=== PATIENT | male | born 1975 | race Two or more races ===

== ENCOUNTER 2024-08-29 09:16 | Emergency (ER) | payer MEDICAID, SELFPAY ==
[2024-08-29 09:33] VITALS: BP 127/78; PULSE 90; RESP 18; TEMP 37.5; O2SAT 95; BMI 38.5
--- NOTE | 2024-08-29 09:46 | EDNOTE_ITS ---
Upper Respiratory Inf. RME/HPI General Chief Complaint: Flu Like Symptoms Stated Complaint: BODYACHES, HEADACHE Time Seen by Provider: 08/29/24 09:18 Arrival date/time: 08/29/24 09:16 This is a 49-year-old male that comes in with complaints of bodyaches, headache that started approximately 3 days ago. Patient denies any sick contacts. Related Data Home Medications ?Medication ?Instructions ?Recorded ?Confirmed levothyroxine 13 mcg capsule 13 mcg PO QDAY 07/23/20 0 07/23/20 lisinopril 2.5 mg tablet 2.5 mg PO QDAY 07/23/2010/07 metformin 500 mg tablet 500 mg PO QDAY 07/23/2010/07 Previous Rx's ?Medication ?Instructions ?Recorded diazepam 10 mg tablet (Valium) 10 mg PO BID PRN muscle spasm #20 07/23/20 tabs naproxen 500 mg tablet (Naprosyn) 500 mg PO BID PRN pa in #60 tabs 07/23/20 ibuprofen 600 mg tablet 600 mg PO TID PRN pain #30 t abs 11/27/22 lidocaine 5 % topical patch 2 patch topical QDAY #15 e a 11/27/22 (Lidoderm) hydrocodone 5 mg-acetaminophen 325 1 tab PO BID PRN pa in #6 tabs 12/02/22 mg tablet ibuprofen 800 mg tablet 800 mg PO Q6H PRN pain #14 t abs 08/29/24 ondansetron 4 mg disintegrating 4 mg PO Q6H PRN nausea and 08/29/24 tablet vomiting #10 tabs Allergies Allergy/AdvReac Type Severity Reaction Status Date / Time No Known Allergies Allergy Verified 08/29/24 09:19 Review of Systems Review of Systems Systems Reviewed: All systems reviewed, normal except as documented Past Medical History Past Medical History CARDIAC: Negative Congestive Heart Failure RESPIRATORY: Negative Chronic Obstructive Pulmonary Disease (COPD) GENITOURINARY: Negative Renal Disease ENDOCRINE: Negative Diabetes Mellitus Type 1 or Diabetes Mellitus Type 2 Social History SMOKING STATUS: Never smoker ED Exam Narrative Physical exam: VITAL SIGNS: Reviewed. GENERAL APPEARANCE: Alert and interactive, follows commands, no acute distress, HEAD AND FACE: Non-traumatic. ENT: PERRL, pink conjunctivitis, eyelid no trauma, Mucous membrane moist. NECK: Supple, nontender, no nuchal rigidity. CHEST: No tenderness, no crepitus, no paradoxical movement, no retractions. LUNGS: Clear, well ventilated, symmetric, no rales, no wheezing, no rhonchi, no stridor, good breath sounds bilaterally. HEART: Regular rate, regular rhythm, no murmur, no gallops. ABDOMEN: Soft, nondistended, no guarding, nontender, no rebound, no masses, NEUROLOGICAL: Gross motor function intact sensory function intact, Appropriate for age. MUSCULOSKELETAL: low back nontender, full range of motion. EXTREMITIES: No redness no swelling no skin breakdown on bilateral foot and leg. Distal neurovascular status intact bilateral foot SKIN: Color pink, dry, no rash, no lacerations, no abrasions, no contusions. Course Quality Measures none Orders Category Date Time Status Bedside COVID-19 Antigen Test NOW Care 08/29/24 09:46 Completed Bedside Influenza A&B Antigen Test NOW Care 08/29/24 09:46 Completed Acetaminophen Tab [Tylenol ES Tab] Med 08/29/24 09:45 Discontinued 1,000 mg PO X1 ONE Ibuprofen Tab [Motrin Tab] Med 08/29/24 09:45 Discontinued 800 mg PO X1 ONE Ondansetron Odt [Zofran Odt] Med 08/29/24 09:45 Discontinued 4 mg PO X1 ONE Vital Signs Vital signs: Vital Signs Temperature 99.5 F 08/29/24 09:33 Pulse Rate 90 08/29/24 09:33 Respiratory Rate 18 08/29/24 09:33 Blood Pressure 127/78 08/29/24 09:33 Pulse Oximetry (%) 95 08/29/24 09:33 Oxygen Delivery Method Room Air 08/29/24 09:33 Upper Respiratory Infection MDM Narrative MDM Narrative:: Patient positive for influenza A. Will treat with supportive care. Patient outside the window to get Tamiflu. Patient told to follow-up with primary provider in 1 to 2 days. Come back to emergency room if symptoms change or worsen. Patient told to rest and drink plenty of fluids. Patient data External records reviewed:: [facility] previous records Clinical information provided by:: patient Social determinants that could affect healthcare access:: none Patient has the following chronic illnesses:: see hpi How is presenting disease/condition affected by chronic disease/condition?: no chronic disease Evaluation data The following diagnostics were reviewed and interpreted by me:: lab results Lab and/or radiology exams considered but not ordered:: none Interpretation Summary: see note Medications / Prescriptions Medications or Prescriptions considered but not ordered:: none Medication administrations:: Medication Administration History Discontinued Medications Acetaminophen (Acetaminophen 500 Mg Tablet) 1,000 mg PO X1 ONE Stop: 08/29/24 09:46 Last Admin: 08/29/24 10:00 Dose: 1,000 mg Documented By: ROMANA Ibuprofen (Ibuprofen Tab 400 Mg Tablet) 800 mg PO X1 ONE Stop: 08/29/24 09:46 Last Admin: 08/29/24 10:00 Dose: 800 mg Documented By: ROMANA Ondansetron HCl (Ondansetron Odt 4 Mg Tabrap) 4 mg PO X1 ONE; Protocol Stop: 08/29/24 09:46 Last Admin: 08/29/24 10:00 Dose: 4 mg Documented By: ROMANA see [facility] Consultations Consultation(s) initiated? (list below): No Diagnosis Upper Respiratory Differential Diagnosis: upper respiratory infection, sinusitis, viral infection, bronchitis and influenza Most likely diagnosis given after review of the tests above:: influenza Admission Indicated Admission indicated?: not indicated Admission Request Was there a request for admission?: No Disposition Plan Disposition Plan: Discharge Discharge Attestation Discharge Attestation: The patient and all family members were given an opportunity to ask questions and understood the discharge instructions. Discharge instructions specifically effects, indications for sooner follow up or return to the emergency department, and the expected course of current diagnosis. Patient condition: Stable Discharge Plan Plan Patient Disposition: HOME (Self Care) Patient condition on transfer: Stable Prescriptions/Referrals Prescriptions/Med Rec: New ondansetron 4 mg tablet,disintegrating 4 mg PO Q6H PRN (Reason: nausea and vomiting) Qty: 10 0RF ibuprofen 800 mg tablet 800 mg PO Q6H PRN (Reason: pain) Qty: 14 0RF No Action metformin 500 mg Tablet 500 mg PO QDAY lisinopril 2.5 mg Tablet 2.5 mg PO QDAY levothyroxine 13 mcg Capsule 13 mcg PO QDAY diazepam [Valium] 10 mg tablet 10 mg PO BID PRN (Reason: muscle spasm) Qty: 20 0RF naproxen [Naprosyn] 500 mg tablet 500 mg PO BID PRN (Reason: pain) Qty: 60 0RF lidocaine [Lidoderm] 5 % adhesive patch,medicated 2 patch topical QDAY Qty: 15 0RF Rx Instructions: leave on most painful area for up to 12 hrs ibuprofen 600 mg tablet 600 mg PO TID PRN (Reason: pain) Qty: 30 0RF hydrocodone-acetaminophen 5-325 mg tablet 1 tab PO BID MDD 10 PRN (Reason: pain) Qty: 6 0RF Referrals: Nazario Lao MD [Primary Care Provider] - In 1 week Problem List Clinical Impression: Influenza A Patient/Caregiver Discharge Instructions Discharge Activity: activity as tolerated Education Materials: ED Influenza (Adult) Additional Instructions: Follow up with primary provider in 1-2 days. Come back to ED if symptoms change or worsen Print Language: Portuguese Stand Alone Forms: Bhavana Award Info., Work/School Release, Patient Portal Info Letter PA/CONFIGURATION MANAGEMENT MANAGER Supervising Physician PA/CONFIGURATION MANAGEMENT MANAGER Supervising Physician: [email or web address]
[2024-08-29] MEDS: ACETAMINOPHEN 500 MG TABLET 1000 MG PO (10:00)
[2024-08-29] MEDS: IBUPROFEN TAB 400 MG TABLET 800 MG PO (10:00)
[2024-08-29] MEDS: ONDANSETRON ODT 4 MG TABRAP PO (10:00)
== END 2024-08-29 11:12 | disposition home or self-care (01) ==
PROVIDERS: Emergency Provider Emergency Medicine; PCP Family Medicine
DX: J10.1 Influenza due to other identified influenza virus with other respiratory manifestations (principal)
CPT/HCPCS: 87400; 87811; 99283; Q0162; A9270